=== PATIENT | female | born 1995 | race Caucasian/White ===

== ENCOUNTER 2025-02-19 19:00 | Emergency (ER) | payer BC, SELFPAY ==
--- OUTSIDE RECORDS SUMMARY | 2025-02-19 19:04 | XMS_ITS | Encounter Summary ---
Author Organization [facility] Address 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 Name Role Phone Unavailable Primary Care Provider Unavailabl e Reason for Referral * Radiology Services (Routine) - Authorized Specialty Diagnoses / Procedures Referred By Katie t Referred To Contact Diagnoses MSH6 gene mutation positive Procedures US PELVIS + TRANSVAG NON OB CHG US PELVIC NONOBSTETRIC REAL-TIME IMAGE COMPLETE [place] [address] [facility] [address] [place] [address] Phone: tel: fax: Referral ID Status Reason Start Date Expiration Date V isits Requested Visits Authorized [id number] Authorized 02/18/2025 03/21/2026 1 1 Reason for Visit * Reason Comments Well Woman Exam Encounter Details Date Type Department Care Team (Late st Contact Info) Description 02/18/2025 8:45 AM CDT 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[facility] 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 - [address] [facility] [address] [place] [address] [place] [address] [facility] [address] [place] [address] Well woman exam with routine gynecological exam (Primary Dx); MSH6 gene mutation positive; Encounter for surveillance of contraceptive pills Social History Tobacco Use Types Packs/Day Years Used Date Smoking Tobacco: Never Smokeless Tobacco: Never Alcohol Use Standard Drinks/Week Comments Yes 2 (1 standard drink = 0.6 oz pure alcohol) Drink socially about 2x a month Comments No Sex and Gender Information Value Date Recorded Sex Assigned at Not on file 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 Gender Identity Not on file Sexual Orientation Not on file Occupation Industry Job Start Date Job End Date [employer] Not on file Not on file Not on file documented as of this encounter Last Filed Vital Signs Vital Sign Reading Time Taken Comments Blood Pressure 110/80 02/18/2025 8:35 AM CDT Pulse - - Temperature - - Respiratory Rate - - Oxygen Saturation - - Inhaled Oxygen Concentration - - Weight 83.9 kg (185 lb) 02/18/2025 8:35 AM CDT Height 162.6 cm (5' 4) 02/18/2025 8:35 AM CDT Body Mass Index 31.76 02/18/2025 8:35 AM CDT documented in this encounter Progress Notes * Britta Kimbrough, SAMMIE - 02/18/2025 8:37 AM CDT Chief Complaint(s): Well woman (age 30-39) HPI: Olena Purvis is a 29 y.o. here for an annual well woman examination. 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 MENSES: regular q month without intermenstrual spotting. FAMILY PLANNING: COCs, satisfied PAP: Last pap smear: 02/13/2024 NILM HPV- Hx of abnormals: No SEXUAL ACTIVITY/STI SCREENING: Sexually active: Yes Would like STI screening today: No BREAST HEALTH: She has no breast complaints today. OTHER: She has no other complaints/issues she would like to discuss today. Past Medical History: Diagnosis Date MSH6 gene mutation positive Vitamin B12 deficiency Past Surgical History: Procedure Laterality Date HX TONSILLECTOMY Current Outpatient Medications on File Prior to Visit Medication Sig Dispense Refill Анна [place] 1.5/30, 28, 1.5 mg-30 mcg (21)/75 mg (7) tablet TAKE 1 TABLET BY MOUTH DAILY 84 Tablet 3 cholecalciferol, vitamin D3, 1,000 unit Take 1 Tablet by mouth daily. cyanocobalamin (VITAMIN B-12) 250 mcg Tablet Take 250 mcg by mouth daily. multivitamins with minerals (Multiple Vitamin-Minerals) Tablet Take 1 Tablet by mouth daily. No current facility-administered medications on file prior to visit. Allergies Allergen Reactions Penicillins Hives Amoxicillin Rash Family History Problem Relation Name Age of Onset Prostate Cancer Father Bimal Purvis 2009 Other Father Bimal Purvis Diagnosed with depression, anxiety Healthy Mother Virgie Purvis Endometriosis Mother Virgie Purvis Had hysterectomy in approximately 2001 Other Mother Virgie Purvis Diagnosed with anxiety Breast Cancer Paternal Grandmother Mary Ann Purvis Breast cancer appeared in 2005 Heart Disease Paternal Grandmother Mary Ann Purvis Thyroid Disease Paternal Grandmother Mary Ann Purvis All her life Other Paternal Grandmother Mary Ann Purvis Diagnosed with depressionn, anxiety Colon Cancer Paternal Grandfather Ronnie Purvis 2016 Diabetes Paternal Grandfather Ronnie Purvis Heart Disease Maternal Grandmother Homa Cannon Stroke Maternal Grandmother Homa Cannon All her life Ovarian Cancer Neg Hx Social History Socioeconomic History Marital status: Single Spouse name: Noam Number of children: 0 Years of education: Not on file Highest education level: Not on file Occupational History 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 Employer: [employer] Tobacco Use Smoking status: Never Smokeless tobacco: Never Vaping Use Vaping status: Never Used Substance and Sexual Activity Alcohol use: Yes Alcohol/week: 2.0 standard drinks of alcohol Types: 1 Glasses of wine, 1 Standard drinks or equivalent per week Comment: Drink socially about 2x a month Drug use: Never Sexual activity: Yes Partners: Male control/protection: Condom, Pill Other Topics Concern Service Not Asked Blood Transfusions No Caffeine Concern Not Asked Occupational Exposure Not Asked Hobby Hazards Not Asked Sleep Concern No Stress Concern No Weight Concern No Comment: has put on a little Special Diet No Back Care Not Asked Exercise Yes Comment: cardio Bike Helmet Not Asked Seat Belt Yes Self-Exams Not Asked Social History Narrative From [place]. 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 Social Drivers of Health Food Insecurity: No Food Insecurity (01/19/2021) Food Insecurity Worried About Running Out of Food in the Last Year: Never true Ran Out of Food in the Last Year: Never true Transportation Needs: No Transportation Needs (01/19/2021) Transportation Needs Lack of Transportation (Medical): No Lack of Transportation (Non-Medical): No Feeling Safe: Not At Risk (01/19/2021) Feeling Safe Fear of Current or Ex-Partner: No Emotionally Abused: No Physically Abused: No Sexually Abused: No Housing Stability: Unknown (01/19/2021) Housing Stability Unable to Pay for Housing in the Last Year: No Number of Times Moved in the Last Year: Not on file Unstable Housing in the Last Year: No Review of Systems: As above. Examination: BP 110/80 Ht 5' 4 (1.626 m) Wt 83.9 kg (185 lb) LMP 02/04/2025 (Approximate) BMI 31.76 kg/m?? Constitutional: Well developed, NAD. Skin: No rash HEENT: Normocephalic, atraumatic. Breasts : Normal appearance, no masses or lumps palpated, nontender, no nipple discharge, no skin changes, no axillary lymphadenopathy. Abdomen: Soft, Nontender, nondistended Psychiatric Affect appropriate, normal speech and attention. SENIOR QA TESTER - External genitalia: normal appearance, no lesions. - Urethra: meatus normal. - Vagina: normal, no lesions or abnormal discharge. - Cervix: normal appearance, no lesions, discharge or bleeding. - Uterus: normal size, shape and consistency, normal mobility, nontender. - Adnexa: no masses or tenderness bilaterally. Assessment: ICD-10-CM ICD-9-CM 1. Well woman exam with routine gynecological exam Z01.419 V72.31 2. MSH6 gene mutation positive Z15.01 V84.01 US PELVIS + TRANSVAG NON OB Z15.09 V84.09 3. Encounter for surveillance of contraceptive pills Z30.41 V25.41 Plan: BREAST HEALTH: - Clinical breast exam within normal limits. Recommend routine screening with annual clinical breast exam. PELVIC HEALTH: - Exam normal. - Pap test with HPV co-testing up to date The recommendation for routine Pap tests for early detection and prevention of cervical cancer werediscussed with the patient - STI screening performed: declined MENSES: - Patient has no menstrual issues. FAMILY PLANNING: - COCs refilled, no contraindications to continuing OTHER - MSH6 + genetic mutation: pelvic US ordered. Next Appointment: 1 year or PRN * Britta Kimbrough NP - 02/18/2025 8:34 AM CDT Depression Screen Positive: PHQ-2 score >= 3 or PHQ-9 score >= 9 PHQ-2 Total: 0 (02/18/2025 8:34 AM) DEPRESSION PLAN OF CARE Her depression screen was negative. 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 - [address] [facility] [address] [place] [address] [place] [address] [facility] [address] [place] [address] Scheduled Orders Name Type Priority Associated Diagnoses Orde r Schedule US PELVIS + TRANSVAG NON OB Imaging Routine MSH6 gene mutation positive Expected: 02/18/2025, Expires: 02/18/2026 documented as of this encounter Visit Diagnoses Diagnosis Well woman exam with routine gynecological exam- Primary Routine gynecological examination MSH6 gene mutation positive Encounter for surveillance of contraceptive pills Surveillance of previously prescribed contraceptive pill documented in this encounter
--- OUTSIDE RECORDS SUMMARY | 2025-02-19 19:04 | XMS_ITS | Clinical Summary ---
Author Organization [facility] Address [address] [place] [address] Phone Care Team Providers Care Treatment Technician Name Role Phone Unavailable Primary Care Provider Unavailabl e Allergies Active Allergy Reactions Criticality Noted Date Comments Amoxicillin Rash Low 06/13/2019 Penicillins Hives High 07/31/2017 Medications cyanocobalamin (VITAMIN B-12) 250 mcg Tablet Take 250 mcg by mouth daily. Active multivitamins with minerals (Multiple Vitamin-Mineral s) Tablet Take 1 Tablet by mouth daily. Active cholecalciferol , vitamin D3, 1,000 unit Take 1 Tablet by mouth daily. Active Анна Fe 1.5/30, 28, 1.5 mg-30 mcg (21)/75 mg (7) tablet Take 1 Tablet by mouth daily. 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 - [address] [place] [address] Britta Kimbrough NP Well woman exam with routine gynecological exam (Primary Dx); MSH6 gene mutation positive; Encounter for surveillance of contraceptive pills 02/05/2025 External Device Data STL ABSTRACTION Provider, Abstract 02/04/2025 External Device Data STL ABSTRACTION Provider, Abstract 01/21/2025 External Device Data STL ABSTRACTION Provider, Abstract 12/29/2024 Refill [facility] AGRICULTURAL EQUIPMENT MECHANIC - [address] [place] [address] Britta Kimbrough NP 12/29/2024 Refill [facility] AGRICULTURAL EQUIPMENT MECHANIC - [address] [place] [address] Britta Kimbrough NP from Last 3 Months Immunizations Immunization Administration Dates Next Due INFLUENZA VACCINE QUADRIVALENT 6 MOS UP PF IM Family History Medical History Relation Name Comments Other Father Bimal Purvis Diagnosed with depression, anxiety Prostate Cancer Father Bimal Purvis 2010 Heart Disease Maternal Grandmother Homa Kassandra Stroke Maternal Grandmother Homa Kassandra All her life Endometriosis Mother Virgie Purvis Had hysterecto my in approximately 2001 Healthy Mother Virgie Purvis Other Mother Virgie Purvis Diagnosed with anxiety Colon Cancer Paternal Grandfather Ronnie Purvis 2016 Diabetes Paternal Grandfather Ronnie Purvis Breast Cancer Paternal Grandmother Mary Ann Purvis Breast cancer appeared in 2005 Heart Disease Paternal Grandmother Mary Ann Purvis Other Paternal Grandmother Mary Ann Purvis Diagnos ed with depressionn, anxiety Thyroid Disease Paternal Grandmother Mary Ann Purvis All her life Ovarian Cancer Neg Hx Relation Name Status Comments Father Bimal Purvis Alive Maternal Grandmother Homa Kassandra Mother Virgie Purvis Alive Paternal Grandfather Ronnie Purvis Paternal Grandmother Mary Ann Purvis Social History Tobacco Use Types Packs/Day Years Used Date Smoking Tobacco: Never Smokeless Tobacco: Never Tobacco Cessation:Counseling Given: No Alcohol Use Standard Drinks/Week Comments Yes 2 (1 standard drink = 0.6 oz pure alcohol) Drink socially about 2x a month Comments No Sex and Gender Information Value Date Recorded Sex Assigned at Not on file 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 Gender Identity Not on file Sexual Orientation Not on file 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 Not on file Not on file Not on file Last Filed Vital Signs Vital Sign Reading Time Taken Comments Blood Pressure 110/80 02/18/2025 8:35 AM CDT Pulse - - Temperature - - Respiratory Rate - - Oxygen Saturation - - Inhaled Oxygen Concentration - - Weight 83.9 kg (185 lb) 02/18/2025 8:35 AM CDT Height 162.6 cm (5' 4) 02/18/2025 8:35 AM CDT Body Mass Index 31.76 02/18/2025 8:35 AM CDT Plan of Treatment Upcoming Encounters Date Type Department Care Team (Late st Contact Info) Description 02/24/2026 8:45 AM CDT 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[facility] AGRICULTURAL EQUIPMENT MECHANIC - [address] [facility] [address] [place] [address] Britta Kimbrough, SAMMIE [address] [facility] [address] [place] [address] Health Maintenance Due Date Last Done Comments INFLUENZA VACCINE (#1) 2025 04/25/2019 PAP SMEAR 02/12/2027 02/13/2024, 01/19/2021 CERVICAL CANCER SCREENING 02/12/2029 HPV/Cotest (21-29) 02/12/2029 02/13/2024 HPV/Cotest (30-65) 02/12/2029 02/13/2024 DTAP/TDAP/TD VACCINES (8 - T d or Tdap) 08/18/2033 08/18/2023, 01/09/2008, 01/09/2008, Additional history exists HEPATITIS B VACCINES Completed 04/04/1994, 04/04/1994, 04/04/1994, Additional history exists HPV VACCINES Completed 07/09/2012, 06/23, 02/28/2012, Additional history exists Procedures Procedure Name Priority Date/Time Associated Diagnosis Comments CERV/VAG CYTO AGE BASED SCREEN PAP Routine 02/13/2024 9:39 AM CDT Screening for cervical cancer Screening for human papillomavirus (HPV) from Last 3 Months or Most Recently Relevant to Health Maintenance Results * CERV/VAG CYTO AGE BASED SCREEN PAP (02/13/2024 9:39 AM CDT) Pathologist [facility] COMMENT (PAP): [facility] [place] Comment: This order for age-based cervical cancer and STI screening follows ACOG guidelines(PB 168, 140, DKK083). See individual assays for performing site location. CLINICAL INFORMATION [employer] Comment:None given LAST MENSTRUAL PERIOD [facility] [place] Comment:NONE GIVEN PREV PAP: [facility] [place] Comment:NONE GIVEN PREV BX: [facility] [place] Comment:NONE GIVEN SOURCE [employer] Comment:Endocervix ADEQUACY: [employer] Comment: Satisfactory for evaluation. Endocervical/transformation zone component absent. Age and/or menstrual status not provided PAP INTERP [facility] [place] Comment: Cytology Results: Negative for intraepithelial lesion or malignancy. COMMENT (PAP TEST) Q uest [facility] [place] Comment: This Pap test has been evaluated with computer assisted technology. MAINTENANCE MECHANIC SUPERVISOR: Moshe est [facility] [place] Comment: DDS, CT(ASCP) CT screening location: [place] [address] [place] [address] EXPLANATORY NOTE [facility] Comment: EXPLANATORY NOTE: The Pap is a screening test for cervical cancer. It is not a diagnostic test and is subject to false negative and false positive results. It is most reliable when a satisfactory sample, regularly obtained, is submitted with relevant clinical findings and history, and when the Pap result is evaluated along with historic and current clinical information. HPV E6/E7 Not Detected Not Detected [place] Comment: Methodology: Coating Mixer Tender-Mediated Amplification This assay detects E6/E7 viral messenger RNA (mRNA) from 14 high-risk HPV types (16,18,31,33,35,39,45,51,52,56,58,59,66,68). Cervical sources are required for HPV testing. If a vaginal source from a patient who has had a total hysterectomy with removal of cervix was submitted, please contact the testing laboratory for alternative testing options. For additional information, please refer to http://education.[employer]/faq/WMC572r4 (This link if provided for information/ educational purposes only.) Test Performed at: [facility] [address] [place] [address] Yuly-Lieu T Vo MD SL Genital SWAB OF ENDOCERVIX / Unknown 02/13/2024 9:39 AM CDT 02/14/2024 8:03 AM CDT us Britta Kimbrough NP PATHOLOGY/CYTOLOGY ORDERAB LES Final Result [facility] [phone] [facility] [address] [place] [address] from Last 3 Months or Most Recently Relevant to Health Maintenance Insurance [facility] [employer] ACCESS CHOICE
--- OUTSIDE RECORDS SUMMARY | 2025-02-19 19:07 | XMS_ITS | Clinical Summary ---
Author Organization [facility] Address [facility] [place] [address] Care Team Providers Care Military Lawyer Name Role Phone Judy Mckeon Primary Care Provider [phone] Allergies Active Allergy Reactions Criticality Noted Date Comments Penicillins Hives,Rash High 07/31/2017 Medications vitamin B-12 250 MCG Tab Take 1 tablet (250 mcg total) by mouth daily. Active multi vitamin/minerals tablet Take 1 tablet by mouth daily. Active vitamin D3, cholecalciferol, 1000 UNIT Tab tablet Take 1 tablet (25 mcg total) by mouth daily. Active Norethindrone Acet-Ethinyl Est (LUZMARIA .12/20) 1.5-30 MG-MCG tablet Take 1 tablet by mouth daily. 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 B12 deficiency 06/13/2019 Irregular menses 06/13/2019 Resolved Problems Problem Noted Date Diagnosed Date Resolved Date Vitamin D deficiency 06/01/2021 024 BMI 32.0-32.9,adult 06/01/2021 01/30/20 25 Encounters Date Type Department Care Team Description 01/30/2025 Results Follow-Up [facility] Family [facility] Internal [facility] [address] [phone] Judy Mckeon APNP VITAMIN B-12, COMPREHENSIVE METABOLIC PANEL, VITAMIN D, 25 OH, Additional followed-up results: 3 01/29/2025 7:00 AM CDT 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[facility] [address] [phone] Judy Mckeon, KARL Physical 01/29/2025 Travel from Last 3 Months Immunizations Immunization Administration Dates Next Due Dtap (Generic) 12/01/1998, 5,01/26/1994,1993 ,1993 HPV 07/09/2012,02/28/2012,01/03/2012 Hepatitis B Pediatric 04/04/1994,1993,03/1994 Hepatitis B Vaccine Adult 04/04/1994,1993, 1993 Hib Vaccine, Hboc 09/29/1994,01/26/1994,11/24/18 94,1993 Influenza (Generic) 07/05/2021 Influenza Adult (Generic) 06/23/2023,08/2021,07/21/2020,04/25/2019 ,05/16/2018,08/05/2017,05/11/2014 MMR (Generic) 12/01/1998,04/04/1994 Meningococcal Vac A,C,Y,W-135 Sc 01/03/2012,12/22 Opv 12/01/1998 Polio Ipv (Generic) 01/26/1994,1993,1993 Td 01/09/2008 Td (Tenivac) preservative free 01/09/2008 Tdap (Adacel) 08/18/2023 Tdap (Generic) 01/09/2008 Family History Medical History Relation Comments Cancer Father Prostate Hypertension Father Mental Health Father Depression Hypertension Maternal Grandfather Heart Disease Maternal Grandmother Hypertension Maternal Grandmother Hypertension Mother Mental Health Mother Cancer Paternal Grandfather Colon Cance r, Liver Cancer (passed due to liver cancer) Diabetes Paternal Grandfather Cancer Paternal Grandmother Breast canc er 15+ years ago but passed of stomach cancer in December 2024 Heart Disease Paternal Grandmother Hypertension Paternal Grandmother Mental Health Paternal Grandmother Depression Relation Status Comments Father Alive Maternal Grandfather Alive Maternal Grandmother Mother Alive Paternal Grandfather Alive Paternal Grandmother Social History Tobacco Use Types Packs/Day Years Used Date Smoking Tobacco: Never Smokeless Tobacco: Never Tobacco Cessation:Counseling Given: No Alcohol Use Standard Drinks/Week Comments Yes 1.7 (1 standard drink = 0.6 oz p ure alcohol) Social drinker PHQ-2 Answer Date Recorded Patient Health Questionnaire-2 Score 0 01/29/2025 Comments No Sex and Gender Information Value Date Recorded Sex Assigned at Female 08/22/2024 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 Sex Female 1:09 PM CDT Gender Identity Not on file Sexual Orientation Not on file Last Filed Vital Signs Vital Sign Reading Time Taken Comments Blood Pressure 118/70 01/29/2025 7:12 AM CDT Pulse 92 01/29/2025 7:12 AM CDT Temperature 36.6 C (97.9 F) 01/29/2025 7:12 AM CDT Respiratory Rate 16 01/29/2025 7:12 AM CDT Oxygen Saturation 99% 01/29/2025 7:12 AM CDT Inhaled Oxygen Concentration - - Weight 83.6 kg (184 lb 4.8 oz) 01/29/2025 7:12 A M CDT Height 162.6 cm (5' 4) 01/29/2025 7:12 AM CDT Body Mass Index 31.64 01/29/2025 7:12 AM CDT Plan of Treatment Health Maintenance Due Date Last Done Comments Cervical Cancer Screening Pap Smear (Age 30 to 64) Every 3 Years 02/20/2022 02/20/2019, 02/20/2019 Cervical Cancer Screening Pap with HPV Testing (Age 30 to 64) Every 5 Years 2023 02/20/2019 Annual Physical 01/29/2026 01/29/2025, 07/25, 06/01/2021 COVID-19 Vaccine ( season) 2026 06/23/2023, 05/21/2022, 07/05/2021, Additional history exists Postponed from 03/24/2024 (Patient Refused) Cervical Cancer Screening with HPV 01/29/2026 Postponed from 02/20/2022 (Going to Outside Clinic) DTaP, Tdap and Td Vaccines (8 - Td or Tdap) 08/18/2033 08/18/2023, 01/09/2008, 01/09/2008, Additional history exists Hepatitis B Vaccines Completed 04/04/1994, 04/04/1994, 1993, Additional history exists Meningococcal Vaccine Aged Out 01/03/2012, 008 No longer eligible based on patient's age to complete this topic HPV Vaccines Completed 07/09/2012, 01/2012, 01/03/2012 Hepatitis C Completed 04/22/2020 PHQ-2 (Physician [place]) Completed 01/29/2025 Meningococcal B Vaccine Aged Out No l onger eligible based on patient's age to complete this topic Pneumococcal Vaccine: Pediatrics (0 to 5 Years) and At-Risk Patients (6 to 49 Years) Aged Out No longer eligible based on patient's age to complete this topic RSV Immunizations Under 20 Months Aged Out No longer eligible based on patient's age to complete this topic Procedures Procedure Name Priority Date/Time Associated Diagnosis Comments COLLECTION VENOUS BLOOD VENIPUNCTURE Routine 01/29/2025 7:54 AM CDT Routine medical exam Class 1 obesity due to excess calories without serious comorbidity with body mass index (BMI) of 31.0 to 31.9 in adult B12 deficiency Vitamin D deficiency CBC W/DIFF AUTOMATED Routine 01/29/2025 7:54 AM CDT Routine medical exam Class 1 obesity due to excess calories without serious comorbidity with body mass index (BMI) of 31.0 to 31.9 in adult B12 deficiency LIPID PANEL Routine 01/29/2025 7:54 AM CDT Routine medical exam Class 1 obesity due to excess calories without serious comorbidity with body mass index (BMI) of 31.0 to 31.9 in adult TSH W/REFLEX Routine 01/29/2025 7:54 AM CDT Routine medical exam Class 1 obesity due to excess calories without serious comorbidity with body mass index (BMI) of 31.0 to 31.9 in adult VITAMIN D, 25 OH Routine 01/29/2025 7:54 AM CDT Vitamin D deficiency COMPREHENSIVE METABOLIC PANEL Routine 01/29/2025 7:54 AM CDT Routine medical exam Class 1 obesity due to excess calories without serious comorbidity with body mass index (BMI) of 31.0 to 31.9 in adult VITAMIN B-12 Routine 01/29/2025 7:54 AM CDT B12 deficiency HEPATITIS C ANTIBODY W/RFX TO HCV RNA Routine 04/22/2020 8:55 AM CDT from Last 3 Months or Most Recently Relevant to Health Maintenance Results * TSH W/REFLEX (01/29/2025 7:54 AM CDT) TSH 1.480 0.358 - 3.740 uIU/ML 01/29/2025 5:37 PM CDT [facility] 01/29/2025 7:54 AM CDT Judy [facility] Final Resul t Performing Organization Address City/[facility] Co de Phone Number [address] [address], * VITAMIN B-12 (01/29/2025 7:54 AM CDT) VITAMIN B12 S/P/B 358 193 - 986 PG/ML 01/29/2025 5:37 PM CDT [facility] 01/29/2025 7:54 AM CDT Judy [facility] Final Resul t Performing Organization Address City/[facility]/ZIP Co de Phone Number [address] [address], [place] [phone] * (ABNORMAL) COMPREHENSIVE METABOLIC PANEL (01/29/2025 7:54 AM CDT) SODIUM S/P/B 138 136 - 145 MMOL/L 01/29/2025 5:37 PM CDT [facility] POTASSIUM S/P/B 4.0 3.5 - 5.1 MMOL/L 01/29/2025 5:37 PM [facility] CHLORIDE S/P/B 102 98 - 107 MMOL/L 01/29/2025 5:37 PM T [facility] CO2 26.1 21 - 32 MMOL/L 01/29/2025 5:37 PM T [facility] GLUCOSE 87 70 - 99 MG/DL 01/29/2025 5:37 PM T [facility] BUN 14 7 - 18 MG/DL 01/29/2025 5:37 PM T [facility] CREATININE S/P/B 0.72 0.55 - 1.02 MG/DL 01/29/2025 5:37 PM [facility] CALCIUM S/P/B 9.1 8.4 - 10.5 MG/DL 01/29/2025 5:37 PM T [facility] BILIRUBIN TOTAL S/P/B 0.4 0.2 - 1.0 MG/DL 01/29/2025 5:37 PM T [facility] ALKALINE PHOSPHATASE S/P/B 73 37 - 98 U/L 01/29/2025 5:37 PM T [facility] AST 14(L) 15 - 37 U/L 01/29/2025 5:37 PM [facility] ALT 26 14 - 59 U/L 01/29/2025 5:37 PM T [facility] TOTAL PROTEIN S/P/B 6.9 6.4 - 8.2 G/DL 01/29/2025 5:37 PM T [facility] ALBUMIN S/P/B 3.6 3.4 - 5.0 G/DL 01/29/2025 5:37 PM T [facility] ANION GAP 9.9 5 - 15 MMOL/L 01/29/2025 5:37 PM T [facility] Comment:REFERENCE RANGE NOT ESTABLISHED OSMOLALITY (CALC) 286 MOSM/KG 025 5:37 PM CDT [facility] Comment:REFERENCE RANGE NOT ESTABLISHED GFR ESTIMATE >90 >90 ML/MIN/1. 73 M2 01/29/2025 5:37 PM CDT [facility] GFR NOTES GFR REFERENCE S: 01/29/2025 5:37 PM CDT [facility] Comment: THE ESTIMATED GFR IS CALCULATED USING THE 2020 CKD-EPI EQUATION. THE FOLLOWING CATEGORIES FOR GRADING RENAL FUNCTION ARE RECOMMENDED BY THE INTERNATIONAL SOCIETY OF NEPHROLOGY (KDIGO 2012 CLINICAL PRACTICE GUIDELINE). G1,NORMAL OR HIGH: >89 ml/min/1.73 m2 G2,MILDLY DECREASED: 60-89 ml/min/1.73 m2 G3A,MILDLY TO MODERATELY DECREASED: 45-59 ml/min/1.73 m2 G3B,MODERATELY TO SEVERELY DECREASED: 30-44 ml/min/1.73 m2 G4,SEVERELY DECREASED: 15-29 ml/min/1.73 m2 G5,KIDNEY FAILURE: <15 ml/min/1.73 m2 01/29/2025 7:54 AM CDT us Judy [facility] Final Resul t [facility] [address] [place] [address], * (ABNORMAL) LIPID PANEL (01/29/2025 7:54 AM CDT) CHOLESTEROL 196 <200 MG/DL 01/29/2025 5:37 PM CDT [facility] TRIGLYCERIDES 91 <150 MG/DL 01/29/2025 5:37 PM CDT [facility] HDL 61 >40 MG/DL 01/29/2025 5:37 PM CDT [facility] LDL-C 117(H) <100 MG/DL 01/29/2025 5:37 PM CDT [facility] VLDL CALCULATION 18 5 - 28 MG/DL 01/29/2025 5:37 PM CDT [facility] CHOL/HDL RATIO 3.2 0.0 - 4.0 01/29/2025 5:37 PM CDT [facility] LDL/HDL 1.9 0.41 - 2.13 01/29/2025 5:37 PM CDT [facility] NON HDL CHOLESTEROL 135 <140 MG/DL 01/29/2025 5:37 PM CDT [facility] 01/29/2025 7:54 AM CDT us Judy [facility] Final Resul t [facility] [address] [place] [address], [place] [phone] * (ABNORMAL) CBC W/DIFF AUTOMATED (01/29/2025 7:54 AM CDT) WBC 5.51 4.00 - 10.80 x10'3/uL 01/29/2025 3:45 PM CDT [facility] RBC 4.70 4.10 - 5.40 x10'6/uL 01/29/2025 3:45 PM CDT [facility] HGB 14.7 12.0 - 16.0 G/DL 01/29/2025 3:45 PM CDT [facility] HCT 44.3 36.0 - 47.0 % 01/29/2025 3:45 PM CDT [facility] MCV 94.3 78.0 - 100.0 FL 01/29/2025 3:45 PM CDT [facility] MCH 31.3(H) 27.0 - 31.0 PG 01/29/2025 3:45 PM CDT [facility] MCHC 33.2 33.0 - 36.0 G/DL 01/29/2025 3:45 PM CDT [facility] RDW 11.5 11.5 - 14.5 % 01/29/2025 3:45 PM CDT [facility] PLT 304 150 - 350 x10'3/uL 01/29/2025 3:45 PM CDT [facility] MPV 9.6 7.4 - 10.4 FL 01/29/2025 3:45 PM CDT [facility] DIFFERENTIAL TYPE AUTOMATED DIFFERENTIAL 01/29/2025 3:45 PM CDT [facility] NEUTROPHILS % 63.5 % 01/29/2025 3:45 PM CDT [facility] LYMPHOCYTES % 27.8 % 01/29/2025 3:45 PM CDT [facility] MONOCYTES % 7.1 % 01/29/2025 3:45 PM CDT [facility] EOSINOPHILS % 0.7 % 01/29/2025 3:45 PM CDT [facility] BASOPHIL[facility] % 0.7 % 01/29/2025 3:45 PM CDT [facility] IMMATURE GRANS % 0.2 % 01/29/2025 3:45 PM CDT [facility] ABS. NEUTROPHILS 3.50 1.60 - 8.30 x10'3/uL 01/29/2025 3:45 PM CDT [facility] ABS. LYMPHOCYTES 1.53 0.80 - 4.70 x10'3/uL 01/29/2025 3:45 PM CDT [facility] ABS. MONOCYTES 0.39 0.00 - 1.50 x10'3/uL 01/29/2025 3:45 PM CDT [facility] ABS. EOSINOPHILS 0.04 0.00 - 0.40 x10'3/uL 01/29/2025 3:45 PM CDT [facility] ABS. BASOPHILS 0.04 0.00 - 0.20 x10'3/uL 01/29/2025 3:45 PM CDT [facility] ABS. IMMATURE GRANULOCYTES 0.01 0.00 - 0.03 x10'3/uL 01/29/2025 3:45 PM CDT [facility] 01/29/2025 7:54 AM CDT Judy Cortes Linda [facility] Final Resul t Performing Organization Address [facility] de Phone Number [facility] [address] [place] [address], [place] [phone] * VITAMIN D, 25 OH (01/29/2025 7:54 AM CDT) Pathologist [facility] VITAMIN D 25 HYDROXY TOTAL S/P/B 46.3 30 - 100 NG/ML 01/29/2025 5:37 PM CDT [facility] Comment: DEFICIENT <20 INSUFFICIENT 20-30 SUFFICIENT 30-100 01/29/2025 7:54 AM CDT Judy Sebastian Linda [facility] Final Resul t Performing Organization Address [facility] de Phone Number [place] [id number] [place] [address], [place] [phone] * HEPATITIS C ANTIBODY W/RFX TO HCV RNA (04/22/2020 8:55 AM CDT) Pathologist [facility] HEPATITIS C AB NON-REACTI VE NON-REACT MAEGAN [facility] SIGNAL TO CUTOFF 0.01 <[address] [facility] Comment: HCV antibody was non-reactive. There is no laboratory evidence of HCV infection. In most cases, no further action is required. However, if recent HCV exposure is suspected, a test for HCV RNA (test code 89169) is suggested. For additional information please refer to http://education.[employer]/faq/QRX86m3 (This link is being provided for informational/ educational purposes only.) 04/22/2020 8:55 AM CDT 04/22/2020 8:56 AM CDT Narrative [facility] - 04/23/2020 9:41 AM CDT FASTING:YES FASTING: YES Judy [facility] Final Resul t [facility] [id number] [place] [phone] from Last 3 Months or Most Recently Relevant to Health Maintenance Insurance Care Teams Military Lawyer Relationship Specialty Start Date End Date Judy Mckeon APNP [facility] [place] [place] [address] PCP - General NURSE PRACTITIONER 04/17/20
--- NOTE | 2025-02-19 19:11 | ED.ANIMALBIT ---
HPI - Animal Bite General Chief Complaint: Animal Bite Stated Complaint: RT Arm Cat Bite Time Seen by Provider: 02/19/25 19:12 Source: patient Mode of arrival: ambulatory Limitations: no limitations History of Present Illness HPI narrative: 29-year-old female presented for complaint of a cat bite to the right upper arm. Onset 1 hour prior to arrival. Says their domestic cat was scared due to a cord wrapped around a leg, when she attempted to free the cat it bit her several times on the upper arm. Cat is utd on vaccines. PCN allergy. Related Data Home Medications ?Medication ?Instructions ?Recorded ?Confirmed ?Last Taken ?Type norethindrone 1.5 mg-ethinyl tablet 02/19/25 Unknown History estradiol 30 mcg(21)/iron 75 mg(7) tablet (Анна Fe .12/20 (28)) Allergies Allergy/AdvReac Type Severity Reaction Status Date / Time ampicillin Allergy Unknown Verified 06/08/19 13:21 Penicillins Allergy Unknown Verified 06/08/19 13:21 Review of Systems Review of Systems: CONSTITUTIONAL: Denies body aches, fever, chills, or sweats. ENT: Denies rhinorrhea, congestion CARDIOVASCULAR: Denies chest pain, palpitations, or edema. RESPIRATORY: Denies cough or dyspnea. GASTROINTESTINAL: Denies abdominal pain, nausea, vomiting, or diarrhea. SKIN: reports cat bite to arm MUSCULOSKELETAL: Denies joint pain, or myalgia. NEUROLOGIC: Denies headache, numbness, tingling, or weakness. [facility] Past Medical History Medical History (Updated 02/19/25 @ 19:18 by Keerthi Jurado APRN) UTI (urinary tract infection) Surgical History Surgical History (Updated 06/08/19 @ 13:49 by Pallavi Vora) No history of previous surgery Social History Social History (Updated 06/08/19 @ 13:49 by Pallavi Vora) Smoking status: Unknown if ever smoked Gender identity (if verbalized by the patient): Female Comments At time of signature, I have reviewed and agree with nursing past medical, surgical, social and family history unless otherwise noted. Please see nursing chart for further information. There is no relevant family history pertinent to the presenting complaint Exam Narrative: GENERAL: Well-appearing EYES: conjunctivae clear, and EOMI. ENT: Mucous membranes moist. NECK: Supple. No lymphadenopathy CHEST: Clear to auscultation. HEART: Regular rate and rhythm. SKIN: Warm, dry. Right upper medial arm with approx 6cm area of 5 superficial puncture sites and bruising c/w reported cat bites. No induration, bleeding or streaking. NEURO: Alert and oriented x3. Course Course Emergency Course: Patient is aware of diagnosis, understands and agrees to treatment plan. Anticipatory guidance given. Patient agrees to follow-up as directed and is aware of reasons to seek care at the emergency department. Portions of this record may have been created with voice recognition software Level of Care: Express Care Visit Vital Signs Vital signs: Reviewed MDM - Animal Bite MDM Narrative Medical decision making narrative: Discussed physical exam findings, multiple superficial cat bites to the right upper medial arm. PCN allergy. Reviewed prescriptions. Advised supportive measures and signs/symptoms to go to the ER. Pt is appropriate for outpt treatment and f/u. Differential Diagnosis Differential diagnosis: Likely bite by animal and cat bite Discharge Plan Discharge Clinical Impression: Cat bite Patient Disposition: Home Condition: Stable Instructions: Antibiotic Form, Animal Bite (ED) Additional Instructions: Keep the areas clean and dry - cleanse with warm water and mild soap and allow to fully dry. Ok to apply neosporin to the site Take antibiotics as directed Watch for worsening symptoms including pain, redness, swelling, streaking, pus/drainage, fever. Go to the ER with any of these symptoms or concerns. Follow up with primary care provider as needed. Patient Language: Korean Prescriptions: New metronidazole 500 mg tablet 500 mg PO Q8H 7 Days Qty: 21 0RF doxycycline hyclate 100 mg tablet 100 mg PO BID 7 Days Qty: 14 0RF No Action norethindrone-e.estradiol-iron [Анна Fe 1.5/30 (28)] 1.5 mg-30 mcg (21)/75 mg (7) tablet ibuprofen [Motrin IB] 200 mg tablet 200 mg PO Q6H PRN (Reason: pain) Qty: 30 0RF Follow-up/Referrals: Linda,SAMMIE Kim [Primary Care Provider] - Time of Disposition: 19:19
[2025-02-19 19:12] VITALS: BP 143/93; PULSE 100; RESP 18; TEMP 36.7; O2SAT 100
== END 2025-02-19 19:19 | disposition home or self-care (01) ==
PROVIDERS: Emergency Provider Nurse Practitioner Family; PCP Registered Nurse
DX: S41.131A Puncture wound without foreign body of right upper arm, initial encounter (principal); W55.01XA Bitten by cat, initial encounter
CPT/HCPCS: 99213; G0463